=== PATIENT | female | born 1940 | race Caucasian/White ===

== ENCOUNTER 2018-05-18 07:51 | Day surgery (SDC) | payer MEDICARE, OTHER ==
[~2018-05-18] VITALS: Ht 157.5 cm; Wt 76.2 kg
[~2018-05-18 07:51] MED LIST: ALBU3IS INH; ALBU90OI INH; ALBU90OI6 INH; ALLER-FLO15.8 ML; ASPI81CH PO; CALCIUM PO; DIAZ2 PO; Flonase 0.05% N16 GM; Fosamax70 MG PO; HYDR1TAB94 PO; MELO7.5 PO; METF500C PO; METO25 PO; Omeprazole20 M1 PO; POTA10T PO; PSEU120ER PO; Zoloft100 MG PO
== END 2018-05-18 23:08 | disposition home or self-care (01) ==
LOC: ORSCMMR 07:51 → ORD 10:00 → ORSCMMR 23:08
PROVIDERS: Surgery
PROC: 0WUF0JZ Supplement Abdominal Wall with Synthetic Substitute, Open Approach (ICD-10-PCS; principal; 2018-05-18 10:00)
DX: K43.6 Other and unspecified ventral hernia with obstruction, without gangrene (principal); I10 Essential (primary) hypertension; J44.9 Chronic obstructive pulmonary disease, unspecified; E11.9 Type 2 diabetes mellitus without complications; K21.9 Gastro-esophageal reflux disease without esophagitis; Z79.82 Long term (current) use of aspirin; Z79.899 Other long term (current) drug therapy
CPT/HCPCS: 82947; C1781; J0330; J0690; J1100; J2250; J2405; J2765; J3010; J7120

== ENCOUNTER 2020-09-05 12:34 | Emergency (ER) | payer MEDICARE ==
[~2020-09-05] VITALS: Ht 165.1 cm; Wt 72.6 kg
[2020-09-05] MEDS ORDERED: OXYC5 PO (14:00)
[2020-09-05] MEDS ORDERED: ARTHRITIS PAIN100 GM TOP (14:00)
== END 2020-09-05 14:08 | disposition home or self-care (01) ==
LOC: ER 12:34
DX: M17.12 Unilateral primary osteoarthritis, left knee (principal); F17.200 Nicotine dependence, unspecified, uncomplicated; Z88.5 Allergy status to narcotic agent; Z79.82 Long term (current) use of aspirin; Z91.013 Allergy to seafood; Z79.899 Other long term (current) drug therapy
CPT/HCPCS: 99283